=== PATIENT | female | born 1980 | race Caucasian/White ===

== ENCOUNTER 2017-06-23 23:09 | Emergency (ER) | payer OTHER ==
[~2017-06-23] VITALS: Ht 170.2 cm; Wt 85.7 kg
[~2017-06-23 23:09] MED LIST: ABILIFY2 MG PO; ADVIL200 M1 PO; AUGMENTIN875 MG PO; CLONAZEPAM0.5 MG PO; FIORICET,ESG1 TABLET PO; FLONASE ALLERG9.9 ML BOTH NARES; NUVARING VAGIN1 EACH VG; PERCOCET 5/31 TABLET PO
[2017-06-23 23:51] VITALS: BP 130/89
== END 2017-06-24 00:17 | disposition left against medical advice (07) ==
LOC: EME 23:09
DX: R22.0 Localized swelling, mass and lump, head (principal); Z53.21 Procedure and treatment not carried out due to patient leaving prior to being seen by health care provider